=== PATIENT | female | born 1945 | race Caucasian/White ===

== ENCOUNTER 2023-11-14 05:04 | Emergency (ER) | payer OTHER ==
[~2023-11-14] VITALS: Ht 157.5 cm; Wt 60.5 kg
[2023-11-14 05:06] VITALS: TEMP 98.5
[2023-11-14 05:54] LABS: BASO # 0.1 10^3/uL (0.0-0.2); EOS # 0.4 10^3/uL (0.0-0.5); EOS % 3.7 % (0.0-3.0); HEMATOCRIT 37.5 % (36.0-47.0); HEMOGLOBIN 13.2 g/dl (12.0-15.5); LYMPH # 1.8 10^3/uL (1.5-5.0); LYMPH % 17.3 % (24.0-44.0); MEAN CORPUSCULAR HEMOGLOBIN 31.7 pg (27.0-33.0); MEAN CORPUSCULAR HGB CONC 35.2 g/dl (32.0-36.5); MEAN CORPUSCULAR VOLUME 89.9 fl (80.0-96.0); MONO # 0.9 10^3/uL (0.0-0.8); MONO % 8.5 % (2.0-8.0); NEUTROPHILS # 7.2 10^3/uL (1.5-8.5); NEUTROPHILS % 69.3 % (36.0-66.0); PLATELET COUNT, AUTOMATED 387 10^3/uL (150-450); RED BLOOD COUNT 4.17 10^6/uL (4.00-5.40); WHITE BLOOD COUNT 10.4 10^3/uL (4.0-10.0)
[2023-11-14 06:18] LABS: CK-MB VALUE MASS < 1.0 NG/ML (<3.6)
[2023-11-14 06:20] LABS: BLOOD UREA NITROGEN 22 MG/DL (9-23); CALCIUM LEVEL 9.7 MG/DL (8.3-10.6); CARBON DIOXIDE LEVEL 26 MMOL/L (20-31); CHLORIDE LEVEL 102 MMOL/L (98-107); CREATININE FOR GFR 0.96 MG/DL (0.55-1.30); GLOMERULAR FILTRATION RATE 59.5 (>32); GLUCOSE, FASTING 187 MG/DL (74-106); POTASSIUM SERUM 3.3 MMOL/L (3.5-5.1); SODIUM LEVEL 138 MMOL/L (136-145)
[2023-11-14 06:22] LABS: CPK CREATINE PHOSPHOKINASE 176 U/L (34-145); MB/CK RELATIVE INDEX 0.56 (< OR =4)
[2023-11-14 07:17] LABS: CK-MB VALUE MASS < 1.0 NG/ML (<3.6)
[2023-11-14 07:23] LABS: CPK CREATINE PHOSPHOKINASE 166 U/L (34-145)
[2023-11-14] MEDS ORDERED: DOXYCYCLINE HYCLATE 100MG TABLET PO ONE (09:40)
[2023-11-14 10:00] VITALS: BP 118/68
[2023-11-14 10:15] VITALS: O2SAT 98
[2023-11-14] MEDS ORDERED: DOXY100C3 PO (11:54)
== END 2023-11-14 12:58 | disposition home or self-care (01) ==
LOC: M ED 05:04
DX: J06.9 Acute upper respiratory infection, unspecified (principal); I71.21 Aneurysm of the ascending aorta, without rupture; I10 Essential (primary) hypertension; E78.5 Hyperlipidemia, unspecified; Z87.891 Personal history of nicotine dependence; Z88.2 Allergy status to sulfonamides; Z79.899 Other long term (current) drug therapy

== ENCOUNTER → 2025-05-15 | Outpatient (REF) | payer OTHER ==
[~2025-05-15] MED LIST: DOXY100C3 PO
[2025-05-15 19:32] LABS: IRON (FE) 26.0 UG/DL (50-170); PERCENT SATURATION 9.8 % (13.2-45.0)
== END ==
LOC: M LAB REF 18:38
PROVIDERS: ATTEND Internal Medicine
DX: D64.9 Anemia, unspecified (principal)

== ENCOUNTER 2025-08-12 18:15 | Inpatient (IN) | payer OTHER ==
[~2025-08-12] VITALS: Ht 154.9 cm; Wt 55.6 kg
[2025-08-12 19:05] LABS: BASO # 0.1 10^3/uL (0.0-0.2); BASO % 0.5 % (0.0-1.0); EOS # 0.5 10^3/uL (0.0-0.5); EOS % 3.1 % (0.0-3.0); LYMPH # 1.4 10^3/uL (1.5-5.0); LYMPH % 9.3 % (24.0-44.0); MONO # 0.8 10^3/uL (0.0-0.8); MONO % 5.0 % (2.0-8.0); NEUTROPHILS # 12.6 10^3/uL (1.5-8.5); NEUTROPHILS % 81.4 % (36.0-66.0); PLATELET COUNT, AUTOMATED 645 10^3/uL (150-450)
[2025-08-12] MEDS: NS 0.9% IV ONE (19:13)
[2025-08-12] MEDS: PIPERACILLIN/TAZOBACTAM SOD 4.5 GM in DEXTROSE 5% (D5W) ADV/MINI-BAG 50 ML IV ONE (19:13)
[2025-08-12] MEDS: [UNRECOGNIZED DRUG - OTHER] IV ONE (19:13)
[2025-08-12] MEDS: ACETAMINOPHEN *IV* 1,000 MG in IV 1 EA IV ONE (19:14)
[2025-08-12 19:17] LABS: INR 1.13
[2025-08-12 20:01] LABS: ALT/SGPT 19.0 U/L (7.0-40); AST/SGOT 56.0 U/L (<34); C REACTIVE PROTEIN QUANTITATIV 21.89 MG/DL (<1.0); CALCIUM LEVEL 8.7 MG/DL (8.3-10.6); CARBON DIOXIDE LEVEL 22.0 MMOL/L (20-31); CHLORIDE LEVEL 97.0 MMOL/L (98-107); CREATININE FOR GFR 1.91 MG/DL (0.55-1.30); GLOMERULAR FILTRATION RATE 25.9 (>32); POTASSIUM SERUM 5.0 MMOL/L (3.5-5.1); SODIUM LEVEL 133.0 MMOL/L (136-145)
[2025-08-12] MEDS ORDERED: FERR324T21 PO (21:08)
[2025-08-12] MEDS ORDERED: LEVO112T2 PO (21:08)
[2025-08-12] MEDS ORDERED: SERT50TA29 PO (21:08)
[2025-08-12] MEDS ORDERED: ROSU20TA86 PO (21:08)
[2025-08-12] MEDS ORDERED: LISI10TA24 PO (21:08)
[2025-08-12] MEDS ORDERED: HOME MED LIST COMPLETE! XX SCH (21:10)
[2025-08-13] MEDS: AZITHROMYCIN INJ 500 MG, VIAL MATE ADAPTER 1 EACH in NS 250 ML IV SCH (02:21)
[2025-08-13 03:00] VITALS: BP 104/55; TEMP 98.4; O2SAT 98
[2025-08-13] MEDS ORDERED: metroNIDAZOLE 0.75% CREAM 45 GM TOP PRN (04:25)
[2025-08-13 05:58] LABS: PLATELET COUNT, AUTOMATED 551 10^3/uL (150-450)
[2025-08-13] MEDS: PIPERACILLIN/TAZOBACTAM SOD 4.5 GM in DEXTROSE 5% (D5W) ADV/MINI-BAG 50 ML IV SCH (06:08)
[2025-08-13] MEDS: LEVOTHYROXINE 112 MCG TABLET (0.112 MG) PO SCH (06:08)
[2025-08-13 06:31] LABS: ALT/SGPT 13.0 U/L (7.0-40); AST/SGOT 31.0 U/L (<34); CALCIUM LEVEL 9.1 MG/DL (8.3-10.6); CARBON DIOXIDE LEVEL 24.0 MMOL/L (20-31); CHLORIDE LEVEL 103.0 MMOL/L (98-107); CREATININE FOR GFR 1.89 MG/DL (0.55-1.30); GLOMERULAR FILTRATION RATE 26.2 (>32); POTASSIUM SERUM 3.7 MMOL/L (3.5-5.1); SODIUM LEVEL 139.0 MMOL/L (136-145)
[2025-08-13] MEDS: NS (Normal Saline) 0.9% 1,000 ML IV SCH (07:10)
[2025-08-13] MEDS ORDERED: SCOPOLAMINE 1MG TRANSDERMAL PATCH TOP PRN (08:40)
[2025-08-13] MEDS: SERTRALINE HCL 50 MG TAB PO SCH (09:00)
[2025-08-13] MEDS ORDERED: FERROUS GLUCONATE 324 MG TAB PO SCH (09:00)
[2025-08-13] MEDS: MORPHINE 10 MG/0.5 ML ORAL CONCENTRATE SOLUTION U/D SL PRN (13:20)
[2025-08-13] MEDS: guaiFENesin SYRUP 200 MG/10 ML UDC PO PRN (15:10)
[2025-08-13] MEDS: CEPACOL LOZENGE PO PRN (18:13)
[2025-08-13] MEDS: LORazepam 1 MG TAB PO SCH (20:10)
[2025-08-13] MEDS ORDERED: ROSUVASTATIN 10 MG TAB PO SCH (21:00)
[2025-08-14] MEDS: LEVOTHYROXINE 112 MCG TABLET (0.112 MG) PO SCH (08:49)
[2025-08-16] MEDS: MORPHINE 10 MG/0.5 ML ORAL CONCENTRATE SOLUTION U/D SL SCH (12:55)
[2025-08-17] MEDS: BENZONATATE 100 MG CAPSULE PO PRN (16:49)
[2025-08-18] MEDS: MORPHINE 10 MG/0.5 ML ORAL CONCENTRATE SOLUTION U/D SL PRN (10:19)
[2025-08-18] MEDS: LORazepam 1 MG TAB PO PRN (11:45)
[2025-08-18] MEDS: MORPHINE SULF IN 0.9% NACL 100 MG in IV 1 EA IV SCH (12:45)
== END 2025-08-18 21:08 | disposition expired | DRG 871 ==
LOC: M ED 18:15 → M ED INP 08-13 01:01 → M PCU 08-13 02:39 → M MSPAV 08-13 14:44
PROVIDERS: ADMIT Student in an Organized Health Care Education/Training Program; ATTEND Internal Medicine
DX: A41.9 Sepsis, unspecified organism (principal); J18.9 Pneumonia, unspecified organism; I21.3 ST elevation (STEMI) myocardial infarction of unspecified site; R65.21 Severe sepsis with septic shock; C21.0 Malignant neoplasm of anus, unspecified; N17.9 Acute kidney failure, unspecified; D50.9 Iron deficiency anemia, unspecified; E78.5 Hyperlipidemia, unspecified; D47.3 Essential (hemorrhagic) thrombocythemia; I12.9 Hypertensive chronic kidney disease with stage 1 through stage 4 chronic kidney disease, or unspecified chronic kidney disease; I95.9 Hypotension, unspecified; R57.0 Cardiogenic shock; E03.9 Hypothyroidism, unspecified; N18.9 Chronic kidney disease, unspecified; R29.6 Repeated falls; F32.A Depression, unspecified; I89.0 Lymphedema, not elsewhere classified; Z51.5 Encounter for palliative care; R00.0 Tachycardia, unspecified; Z79.899 Other long term (current) drug therapy; Z79.890 Hormone replacement therapy; Z88.2 Allergy status to sulfonamides; Z66 Do not resuscitate